=== PATIENT | male | born 1960 | race Hispanic/Latino ===

== ENCOUNTER 2016-09-28 11:20 | Day surgery (SDC) | payer MEDICARE ==
[2016-02-03 11:22] VITALS: BMI 26.6
[2016-09-28 12:20] VITALS: RESP 18
[2016-09-28] MEDS ORDERED: MethylPREDNISolone Depo 40 mg/ml Inj ONE (13:42)
[2016-09-28] MEDS ORDERED: Bupivacaine HCl 0.25% PF (10 ml) Inj ONE (13:43)
[2016-09-28] MEDS ORDERED: Iohexol 300 10 ML ONE (13:43)
[2016-09-28] MEDS ORDERED: Lidocaine 1% Inj (20ml) ONE (13:44)
[2016-09-28] MEDS ORDERED: Propofol 10 mg/ml Inj (20 ML) ONE (13:50)
[2016-09-28] MEDS ORDERED: Lactated Ringer's 1,000 ML IV SCH (14:21)
[2016-09-28 14:48] VITALS: PULSE 64
--- NOTE | 2016-09-28 14:55 | OP ---
PROCEDURE DATE: 09/28/2016 PREOPERATIVE DIAGNOSIS: Chronic lumbar radiculopathy. POSTOPERATIVE DIAGNOSIS: Chronic lumbar radiculopathy. PROCEDURE: Lumbar epidural, translaminar epidural steroid injection with fluoroscopy, L4-L5. The patient's consent signed. He was asked to assume a prone position with a pillow under the abdome n. The low back area was then prepped and draped in usual sterile fashion. The L4-L5 interspace was identified under fluoroscopy. Skin infiltration anesthesia was done using 1% xylocaine . Usin g a #20 gauge Tuohy epidural needle, the needle was inserted into the epidural space with the aid of loss of resistance technique, followed by injection of 3 mL of Omnipaque 300 dye solution. After neg ative aspiration test, solution consisting of 80 mg Depo-Medrol with 5 mL of % solution was inje cted into the epidural space. The needle was withdrawn. Band-Aid applied to the area. The patient tolerated the procedure well while under IV sedation anesthesia. Cash Snell MD cc: [phone] TT: 09/28/2016 14:54:30 en
--- NOTE | 2016-09-28 14:59 | RAD ---
PROCEDURE: Fluoroscopy. HISTORY: PAIN MANAGEMENT FINDINGS: Fluoroscopic assistance was provided for spinal management procedure. Approximately 14.4 seconds of fluoroscopy time utilized. Radiation dose = 4.86 mGy Please refer to the operative report for additional details.
[2016-09-28 15:05] VITALS: BP 153/87; TEMP 98
[2016-09-28 15:07] VITALS: O2SAT 98
== END 2016-09-28 15:20 | disposition home or self-care (01) ==
LOC: H.OPSURG 11:20
PROVIDERS: ATTEND Anesthesiology
DX: M54.16 Radiculopathy, lumbar region (principal); I10 Essential (primary) hypertension
CPT/HCPCS: 62322; J1030; J2704; J7120; Q9967

== ENCOUNTER 2016-10-31 13:26 | Emergency (ER) | payer MEDICARE ==
[2016-10-31 13:27] VITALS: BMI 25.8
[2016-10-31 13:38] VITALS: BP 139/64; PULSE 66; RESP 16; TEMP 98.3; O2SAT 100
[2016-10-31] MEDS ORDERED: Sodium Chloride 0.9% 1,000 ML IV STA (14:21)
--- NOTE | 2016-10-31 14:26 | ED PDOC ---
HPI: Abdomen Time Seen by Provider: 10/31/16 14:09 Chief Complaint (Nursing): Abdominal Pain Chief Complaint (Provider): Abdominal Pain History Per: Patient History/Exam Limitations: no limitations Onset/Duration Of Symptoms: Days (x1 week) Current Symptoms Are (Timing): Still Present Severity: Mild Additional Complaint(s): 56 y/o male with a past medical history of diverticulitis and chronic back pain who presents to the emergency department with a complaint of a mild left lower back pain that radiates to the left lower abdomen and groin x1 week. Patient describes pain is intermittent and similar to diverticulitis. Reports taking Percocet 325 mg-10 mg without the relief of symptoms. Denies urinary symptoms, testicular pain, nausea, vomiting, diarrhea, chest pain, or shortness of breath. No new food or drinks. dysuria. Of note, patient is prescribed Percocet and Oxycodone for the relief of chronic back pain due to herniated discs. PMD: Dr. Mya Oseguera MD Past Medical History Reviewed: Historical Data, Nursing Documentation, Vital Signs Vital Signs: Last Vital Signs Temp 98.3 F 10/31/16 13:35 Pulse 66 10/31/16 13:35 Resp 16 10/31/16 13:35 BP 139/64 10/31/16 13:35 Pulse Ox 100 10/31/16 16:02 - Medical History PMH: Back Problems, Diverticulitis, HTN, Pancreatitis, Chronic Pain Denies: Arthritis, Cardia Arrhythmia, CHF, Colonic Polyps, Crohn's Disease, Fractures, Gastritis, Gall Bladder Disease, Hypercholesterolemia, Mitral Valve Prolapse, Osteoporosis, Peripheral Edema, Chronic Kidney Disease, Rheumatoid Arthritis - Surgical History Surgical History: Denies: Appendectomy, CABG, Carotid Endarterectomy, Cholecystectomy, Coronary Stent, Endoscopy, Pacemaker, Tonsillectomy - Family History Family History: States: Unknown Family Hx - Living Arrangements Living Arrangements: With Family - Social History Current smoker - smoking cessation education provided: Yes (Heavy Smoker > 10 Cigarettes Daily) Alcohol: None Drugs: Denies - Immunization History Hx Tetanus Toxoid Vaccination: No Hx Influenza Vaccination: No Hx Pneumococcal Vaccination: No - Home Medications Home Medications: Ambulatory Orders Medication Instructions Recorded Oxycodone HCl/Acetaminophen 10 - 325 mg PO TID 10/14/14 [Percocet 325 mg-10 mg] Oxycodone Hydrochloride [Oxycodone] 30 mg PO TID 10/14/14 Valsartan [Diovan] 320 mg PO DAILY 09/28/16 Ciprofloxacin HCl [Cipro] 500 mg PO BID 7 Days 10/31/16 Metronidazole [Flagyl] 500 mg PO TID 7 Days 10/31/16 - Allergies Allergies/Adverse Reactions: Allergies Allergy/AdvReac Type Severity Reaction Status Date / Time aspirin Allergy RASH Verified 10/31/16 13:35 cyclobenzaprine HCl Allergy RASH Verified 10/31/16 13:35 [From Flexeril] ibuprofen [From Motrin] Allergy RASH Verified 10/31/16 13:35 naproxen Allergy RASH Verified 10/31/16 13:35 Review of Systems ROS Statement: Except As Marked, All Systems Reviewed And Found Negative Cardiovascular: Negative for: Chest Pain Respiratory: Negative for: Shortness of Breath Gastrointestinal: Positive for: Abdominal Pain (Mild left lower quadrant raditing to the groin). Negative for: Nausea, Vomiting, Diarrhea, Constipation Genitourinary Male: Negative for: Dysuria, Frequency, Incontinence, Hematuria, Other (Testicular pain) Musculoskeletal: Positive for: Back Pain (Mild left lower) Physical Exam - Reviewed Nursing Documentation Reviewed: Yes Vital Signs Reviewed: Yes - Physical Exam Appears: Positive for: Non-toxic, No Acute Distress Head Exam: Positive for: ATRAUMATIC, NORMAL INSPECTION, NORMOCEPHALIC Skin: Positive for: Normal Color, Warm, Dry ENT: Positive for: Normal ENT Inspection Neck: Positive for: Normal, Supple Cardiovascular/Chest: Positive for: Regular Rate, Rhythm. Negative for: Murmur Respiratory: Positive for: Normal Breath Sounds. Negative for: Accessory Muscle Use, Respiratory Distress Gastrointestinal/Abdominal: Positive for: Soft, Tenderness (Mild left lower quadrant ) Back: Positive for: Other (Mild left lower back pain). Negative for: Normal Inspection, L CVA Tenderness, R CVA Tenderness Extremity: Positive for: Normal ROM. Negative for: Pedal Edema Neurologic/Psych: Positive for: Alert, Oriented - Laboratory Results Result Diagrams: 10/31/16 14:37 10/31/16 14:37 Interpretation Of Abn Labs: no acute - ECG O2 Sat by Pulse Oximetry: 100 (RA) Pulse Ox Interpretation: Normal - CT Scan/US ct Other Rad Studies (CT/US): Read By Radiologist Other Rad Interpretation: diverticulitis - Progress ED Course And Treament: 1633: Stable. AAOx3. Pain controlled. Fu with GI. Tolerated PO. Medical Decision Making Medical Decision Making: Time: 14:09 Initial impression: Abdominal Pain Initial plan: --ABD & Pelvis w/o PO or IV Contrast (CT) --COMP Metabolic Panel --Urine Dip --CBC w/ differential --Morphine 4 mg IV --Sodium Chloride 1,000 ml IV 1,000 mls/hr --Revaluation Time: 15:56 --Abdomen/Pelvis CT FINDINGS: There is limited evaluation of the solid organs without the administration of IV contrast. LOWER THORAX: Bibasilar atelectasis. There is no visible pleural effusion or pneumothorax. Small hiatal hernia/distal esophageal wall thickening. LIVER: Nodular hepatic contour. Heterogeneous coarsened hepatic echotexture. Hepatomegaly. GALLBLADDER AND BILE DUCTS: Gallbladder distension. No calcified gallstones identified. PANCREAS: Unremarkable. SPLEEN: Splenomegaly. ADRENALS: Unremarkable. KIDNEYS AND URETERS: No hydronephrosis or obstructing renal calculus. BLADDER: The urinary bladder appears unremarkable. REPRODUCTIVE: The prostate gland measures approximately 3.6 x 4.2 cm. APPENDIX: The appendix appears within normal limits of caliber. No secondary signs of acute appendicitis. BOWEL: The stomach is nondistended. Lack of oral contrast limits evaluation for bowel pathology. The bowel loops appear within normal limits of caliber without evidence of intestinal obstruction. Extensive diverticulosis involving the left and rectosigmoid colon with wall thickening and adjacent inflammatory changes ; appearance concerning for acute diverticulitis. PERITONEUM: No significant free fluid. No definite free air. LYMPH NODES: No bulky lymphadenopathy identified. VASCULATURE: Atherosclerotic calcifications. No aortic aneurysm. BONES: Degenerative changes. OTHER FINDINGS: None. IMPRESSION: Extensive diverticulosis involving the left and rectosigmoid colon with wall thickening and adjacent inflammatory changes ; appearance concerning for acute diverticulitis. Hepatomegaly. Splenomegaly. Coarsened heterogeneous hepatic echotexture. Nodular hepatic contour. Findings consistent with cirrhosis. Gallbladder distension. No calcified gallstones identified. Correlate clinically. Additional incidental findings as above. Scribe Attestation: Documented by Nati Guerrier, acting as a scribe for Molina Moon MD. Provider Scribe Attestation: All medical record entries made by the Scribe were at my direction and personally dictated by me. I have reviewed the chart and agree that the record accurately reflects my personal performance of the history, physical exam, medical decision making, and the department course for this patient. I have also personally directed, reviewed, and agree with the discharge instructions and disposition. Disposition - Clinical Impression Clinical Impression: Diverticulitis - Patient ED Disposition Is Patient to be Admitted: No Counseled Patient/Family Regarding: Studies Performed, Diagnosis, Need For Followup, Rx Given - Disposition Referrals: [facility] [Outside] - 11/05/16 Vladimir Kingsley MD [Staff Provider] - 11/05/16 Disposition: Routine/Home Disposition Time: 16:35 Condition: STABLE Additional Instructions: Return if not better in 3 days. Prescriptions: Ciprofloxacin HCl [Cipro] 500 mg PO BID 7 Days Metronidazole [Flagyl] 500 mg PO TID 7 Days Instructions: Diverticulitis (ED) Forms: [employer] (Serbian)
[2016-10-31 14:49] LABS: BASO % 0.8 % (0.0-2.0); EOS # 0.2 K/uL (0.0-0.7); EOS % 3.9 % (0.0-4.0); HEMATOCRIT 42.2 % (35.0-51.0); LYMPH # 0.9 K/uL (1.0-4.3); LYMPH % 15.2 % (20.0-40.0); MEAN CELL VOLUME 95.3 fl (80.0-94.0); MEAN CORPUSCULAR HEMOGLOBIN 32.8 pg (27.0-31.0); MEAN CORPUSCULAR HGB CONC 34.4 g/dL (33.0-37.0); MEAN PLATELET VOLUME 9.3 fl (7.2-11.7); MONO # 0.7 K/uL (0.0-0.8); MONO % 12.1 % (0.0-10.0); NEUT # 4.2 K/uL (1.8-7.0); NRBC % 0.1 % (0.0-0.0); RED CELL DISTRIBUTION WIDTH 13.1 % (11.5-14.5); WHITE BLOOD COUNT 6.2 K/uL (4.8-10.8)
[2016-10-31 15:05] LABS: ALB/GLOB RATIO 1.3 (1.0-2.1); ALKALINE PHOSPHATASE 82 U/L (38-126); ALT/SGPT 47 U/L (21-72); AST/SGOT 40 U/L (17-59); BILIRUBIN,TOTAL 0.7 mg/dl (0.2-1.3); BLOOD UREA NITROGEN 7 mg/dl (9-20); CARBON DIOXIDE 25 mmol/L (22-30); CHLORIDE 99 mmol/L (98-107); GFR AFRICAN-AMERICAN > 60; GLUCOSE,RANDOM 140 mg/dL (75-110); SODIUM 136 mmol/l (132-148); TOTAL PROTEIN 7.3 G/DL (6.3-8.2)
[2016-10-31 15:07] LABS: POTASSIUM 3.8 MMOL/L (3.6-5.0)
--- NOTE | 2016-10-31 15:58 | CT ---
PROCEDURE: CT Abdomen and Pelvis without Oral or IV contrast. HISTORY: R/O stone COMPARISON: CT abdomen and pelvis performed 09/27/11 TECHNIQUE: Contiguous axial images of the abdomen and pelvis. No oral or IV contrast administered. Coronal and Sagittal reformats generated and reviewed. Radiation dose: Total exam DLP = 765.30 mGy-cm. This CT exam was performed using one or more of the following dose reduction techniques: Automated exposure control, adjustment of the mA and/or kV according to patient size, and/or use of iterative reconstruction technique. FINDINGS: There is limited evaluation of the solid organs without the administration of IV contrast. LOWER THORAX: Bibasilar atelectasis. There is no visible pleural effusion or pneumothorax. Small hiatal hernia/distal esophageal wall thickening. LIVER: Nodular hepatic contour. Heterogeneous coarsened hepatic echotexture. Hepatomegaly. GALLBLADDER AND BILE DUCTS: Gallbladder distension. No calcified gallstones identified. PANCREAS: Unremarkable. SPLEEN: Splenomegaly. ADRENALS: Unremarkable. KIDNEYS AND URETERS: No hydronephrosis or obstructing renal calculus. BLADDER: The urinary bladder appears unremarkable. REPRODUCTIVE: The prostate gland measures approximately 3.6 x 4.2 cm. APPENDIX: The appendix appears within normal limits of caliber. No secondary signs of acute appendicitis. BOWEL: The stomach is nondistended. Lack of oral contrast limits evaluation for bowel pathology. The bowel loops appear within normal limits of caliber without evidence of intestinal obstruction. Extensive diverticulosis involving the left and rectosigmoid colon with wall thickening and adjacent inflammatory changes ; appearance concerning for acute diverticulitis. PERITONEUM: No significant free fluid. No definite free air. LYMPH NODES: No bulky lymphadenopathy identified. VASCULATURE: Atherosclerotic calcifications. No aortic aneurysm. BONES: Degenerative changes. OTHER FINDINGS: None. IMPRESSION: Extensive diverticulosis involving the left and rectosigmoid colon with wall thickening and adjacent inflammatory changes ; appearance concerning for acute diverticulitis. Hepatomegaly. Splenomegaly. Coarsened heterogeneous hepatic echotexture. Nodular hepatic contour. Findings consistent with cirrhosis. Gallbladder distension. No calcified gallstones identified. Correlate clinically. Additional incidental findings as above.
== END 2016-10-31 16:45 | disposition home or self-care (01) ==
LOC: H.ER 13:26
DX: K57.92 Diverticulitis of intestine, part unspecified, without perforation or abscess without bleeding (principal); M54.5 Low back pain; K85.90 Acute pancreatitis without necrosis or infection, unspecified; I10 Essential (primary) hypertension; G89.29 Other chronic pain; R16.0 Hepatomegaly, not elsewhere classified; R16.1 Splenomegaly, not elsewhere classified
CPT/HCPCS: 74176; 80053; 85025; 96374; 99282; J2270; J7040